=== PATIENT | female | born 1960 | race Caucasian/White ===

== ENCOUNTER 2023-09-05 11:26 | Outpatient (CLI) | payer MEDICARE, BC, SELFPAY ==
--- OUTSIDE RECORDS SUMMARY | 2023-09-05 11:29 | XMS_ITS | Clinical Summary ---
Author Name Unknown Organization [facility] Address [place], [place] [address] Care Team Providers Care Digital Associate Name Role Phone Andrzej Johnson MD Primary Care Provider [phone] Allergies Active Allergy Reactions Criticality Noted Date Comments Amoxicillin Rash 11/02/2013 Tree Nut Hives 02/26/2008 Medications Medication Sig Dispensed Refills Start Date End Date Status BiPapIndications:Obs tructive sleep apnea BIPAP machine for home use at pressure: 14/10 cm/H2O , nasal mask x1/3month with nasal cushion x2/mo 1 Each 0 02/26/2021 Active medication order composer Bone [place] with collagen 0 03/15/2022 Active dwmezqt-twni-svhuy-o reg-capryl 100 mg-150 mg- 50 mg-150 mg cap Take by mouth. 0 03/15/2022 Active loratadine (CLARITIN) 10 mg tablet Take 1 Tablet (10 mg) by mouth once daily. 0 03/15/2022 Active hydroCHLOROthiazide 12.5 mg capsuleIndications:H TN (hypertension) Take 1 Capsule (12.5 mg) by mouth every morning. 90 Capsule 3 05/02/2023 Active potassium chloride (Klor-Con M20) 20 mEq extended-release tablet (part/cryst)Indicati ons:HTN (hypertension) Take 1 Tablet (20 mEq) by mouth once daily with a meal. 270 Tablet 3 05/03/2023 Active Active Problems Problem Noted Date Diagnosed Date HTN (hypertension) 03/04/2014 JOSE MANUEL 02/02/2013 AHI-14, positional 02/08/2013 Screen for colon cancer 03/20/2010 Overview: Colon cancer screening. Her most recent one was 03/11/2020 and she will be due for her next one in 03/2030. Prediabetes 06/11/2009 Other abnormal blood chemistry 07/14/2007 Overview: Fasting sugar of 110 in 2001 Immunizations Name Administration Dates Next Due AMB Influenza, IIV3 (Age >=3 years)(Flu Clinic Only) 07/15/2008 COVID-19 vaccine (Moderna 100mcg/0.5mL) PF, MDV 10/07/2020,09/09/2020 Hepatitis A (Adult) 06/11/2009,02/26/20082008 Hepatitis B (Adult) 03/03/2020, 2,07/13/2001,05/04 Hepatitis B, Unspecified 07/13/2001,05/04/2001 Influenza A (H1N1), Inactivated 08/25/2009 Influenza A (H1N1), Inactiva patrizia (Age >=3 Years) 08/25/2009 Influenza, IIV3 (Age 6-35 mos) 09/28/2010 Influenza, IIV3 (Age >=3 years) 06/11/20 09,07/14/2007,06/25/2006,06/29,06/22/2003 Influenza, IIV4 04/17/2022, 8,06/03/2017,08/20,05/23/2015,05/30/2014 Influenza, IIV4 (=>6mos) MDV 05/31/2019 Influenza, Injectable, Mdck, Quadrivalent, W/preservative 05/28/2021 Influenza,CCIIV4 PRESERV FREE 05/19/2020 Td (Age >=7 Years) 07/06/1996 Tdap 09/26/2017,09/28/2010,02/22/2007 02/22/2017 Zoster (Shingrix-RZV, recombinant) 05/01/2019,,10/22/2018 Family History Medical History Relation Name Comments Cancer-prostate Brother 1 Cancer-prostate Brother 2 Cancer-prostate Brother 3 Cancer-prostate Brother 4 Cancer-prostate Brother 5 Cancer Father Lung cancer d at 63 Cancer-breast Maternal Aunt 2 Heart Disease Maternal Uncle Heart Disease Mother Pacemaker and Valve Replacement; doing well in her 90s Cancer-breast Other Niece- materna l Diabetes Paternal Grandmother Malignant Hypertension Sister 2 La[place] under control now Relation Name Status Comments Brother 1 Brother 2 Alive Brother 3 Alive Brother 4 Alive Brother 5 Alive Brother 6 Alive Father Maternal Aunt 1 (Age age 62) alejandra ast cancer Maternal Aunt 2 Maternal Grandfather (Age age 62 ) lung cancer Maternal Grandmother Alive Maternal Uncle Mother Other Paternal Grandmother Sister 1 Alive Sister 2 Lavern Alive Social History Tobacco Use Types Packs/Day Years Used Date Smoking Tobacco: Never Smokeless Tobacco: Never Tobacco Cessation:Counseling Given: Yes Alcohol Use Standard Drinks/Week Comments Yes 3 (1 standard drink = 0.6 oz pur e alcohol) occasional PHQ-2 Answer Date Recorded PHQ-2 TOTAL SCORE 0 03/16/2023 Social Connections Answer Date Recorded Frequency of Communication with Friends and Fami ly 0 03/14/2023 Alcohol Use Answer Date Recorded How often do you have a drink containing alcohol ? 3 03/15/2022 How many drinks containing a lcohol do you have on a typical day when you are drinking? 0 03/15/2022 How often do you have five or more drinks on one occasion? 0 03/15/2022 Financial Resource Strain Answer Date R ecorded Difficulty of Paying Living Expenses 3 03/14/2023 Difficulty of Paying Living Expenses Not on file 03/14/2023 Food Insecurity Answer Date Recorded Worried About Running Out of Food in the Last Ye ar 1 03/14/2023 Transportation Needs Answer Date Record ed Lack of Transportation (Medical) 1 03/14/2023 Housing Stability Answer Date Recorded Unable to Pay for Housing in the Last Year 1 03/14/2023 Sex and Gender Information Value Date Recorded Sex Assigned at Not on file Gender Identity Not on file Sexual Orientation Not on file Obstetrics History Para Term AB IAB SAB Ectopic Multiple Livin g Live Births 3 3 3 Date Outcome GA Total Labor Labor/2nd/3rd Weight Sex Delivery Anes PTL Pauly A1 A5 Name Cl in Term Term Term Last Filed Vital Signs Vital Sign Reading Time Taken Comments Blood Pressure 132/85 03/16/2023 9:37 AM CDT Pulse 65 03/16/2023 9:37 AM CDT Temperature 36.1 ??C (97 ??F) 03/15/2022 10: 02 AM CDT Respiratory Rate 18 02/26/2008 9:58 AM CDT Oxygen Saturation 99% 03/16/2023 9:37 AM CDT Inhaled Oxygen Concentration - - Weight 102.2 kg (225 lb 6.4 oz) 03/16/2023 9:37 AM CDT Height 156 cm (5' 1.42) 03/16/2023 9:37 AM CDT Body Mass Index 42.01 03/16/2023 9:37 AM CDT Plan of Treatment Upcoming Encounters Date Type Department Care Team (Late st Contact Info) Description 09/20/2023 11:45 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 [facility] [place] [place] [address] Jeffrey Roque PA [address] [address] Health Maintenance Due Date Last Done Comments HIV for age 15-65 1975 COVID-19 vaccine series (2022- season) 2023 04/17/2022, 01/19/2022, 06/12/2021, Additional history exists DEXA/DXA scan for age 65+ 2023 Influenza for age 65+ 2023 04/17/2022 , 05/28/2021, 05/19/2020, Additional history exists Pneumococcal series for age 65+ (1 of 1 - PCV) 2023 Mammogram for age 45-75 03/11/2024 03/11/20 23, 03/08/2022, 03/06/2021, Additional history exists Pap test for age 21-65 03/13/2024 , 03/13/2021, 08/20/2016, Additional history exists BMI (ht and wt on same day) for age 18+ 03/16/2024 03/16/2023, 03/15/2022, 03/13/2021, Additional history exists Depression screening for age 12+ 03/16/2024 03/16/2023, 03/15/2022, 03/13/2021, Additional history exists Tetanus booster 09/26/2027 09/26/2017, 09/09, 02/22/2007, Additional history exists Lipids for age 45-75 03/16/2028 03/16/2023, 03/15/2022, 03/13/2021, Additional history exists Colonoscopy through age 75 03/11/203003/11, 03/20/2010, 03/20/2010 Tdap Completed 09/26/2017, 09/09, 02/22/2007 Zoster (shingles) series for age 50+ Completed 05/01/2019, 11/05/2018, 10/22/2018 Hepatitis C screening for ag e 18-79 Completed 03/13/2021 Care Teams Digital Associate Relationship Specialty Start Date End Date Andrzej Johnson MD [address] [place] [address] PCP - General 06/20/09
== END 2023-09-05 11:27 | disposition home or self-care (01) ==
PROVIDERS: PCP Family Medicine; Visit Provider Family Medicine
DX: Z13.220 Encounter for screening for lipoid disorders (principal); R73.03 Prediabetes
CPT/HCPCS: 80053; 80061

== ENCOUNTER 2023-09-29 12:53 | Outpatient (CLI) | payer MEDICARE, BC, SELFPAY ==
--- NOTE | 2023-09-29 13:00 | XR_ITS ---
Patient: BRANDAN DENNIS Facility:?[facility] Patient ID:?[id number] Site Patient ID:?[id number]. Site :?[id number] Study:?DEXA-Bone Density -09/29/2023 1:29:27 PM Ordering Physician:REFUGIO Final Report: DXA BONE MINERAL DENSITY STUDY Reason for exam: Asymptomatic menopausal state. Current height (inches): 61.5 Weight (lbs.): 220.0 Menopause age: 53 Ethnicity: White 1. Have you had a previous hip or vertebral fracture? No. 2. Have you had any fractures during your adult life which did not result from significant trauma (e.g., auto accident)? No. 3. Did either of your parents have a hip fracture? No. 4. Do you smoke? No. 5. Have you ever taken Glucocorticoids? No. 6. Do you have rheumatoid arthritis? No. 7. Do you have secondary osteoporosis? No. 8. Do you drink 3 or more alcoholic drinks per day? No. 9. Are you being treated for osteoporosis? No. 10. Have you ever taken any of the following medications: Actonel, Evista, Fosamax, Miacalcin, Reclast, Boniva, Forteo, HRT (i.e., estrogen/hormone therapy), Protelos, Prolia, Vitamin D, Calcium, other ? please specify. ANSWER: Yes; vitamin D and calcium. 11. Do you have any of the following medical conditions: Anorexia or bulimia, asthma or emphysema, end stage renal disease, hyperparathyroidism, any seizure disorders, cancer, inflammatory bowel diseases, hysterectomy, other ? please specify. ANSWER: No. 12. What was your maximum height (inches)? 62. 13. Do you perform weightbearing exercise regularly? Yes. 14. Do you regularly consume dairy products? Yes. 15. Do you drink caffeinated beverages? Yes. 16. At what age did your period start? 11. 17. Are you premenopausal? No. 18. How many full-term pregnancies have you had? 3. 19. Have you ever missed your period for more than 6 months in a row (not including or menopause)? No. TECHNIQUE: Bone mineral density study was performed using the [employer]. FINDINGS: The results of the study expressed as bone mineral density (BMD) are as follows: Lumbar Spine L1 to L4: BMD: 1.200 g/cm2. T-score: 1.4. Z-score: 3.2. Neck Left: BMD: 0.803 g/cm2. T-score: -0.4. Z-score: 1.1. Right: BMD: 0.859 g/cm2. T-score: 0.1. Z-score: 1.6. Total Left: BMD: 0.914 g/cm2. T-score: -0.2. Z-score: 1.0. Right: BMD: 0.974 g/cm2. T-score: 0.3. Z-score: 1.5. IMPRESSION: Normal bone density. JACOBO SPAULDING M.D. Diagnostic Radiologist [email or web address] [email or web address]/[email or web address] D& Transcribed: 2:[address]/Dictated by: Jacobo Spaulding MD @ 09/30/2023 11:58:00 AM Signed by:?Jacobo Spaulding MD @09/30/2023 3:04:57 PM (Electronic Signature)
== END 2023-09-29 12:54 | disposition home or self-care (01) ==
LOC: RAD 12:55
PROVIDERS: PCP Family Medicine; Visit Provider Family Medicine
DX: Z78.0 Asymptomatic menopausal state (principal)
CPT/HCPCS: 77080

== ENCOUNTER 2024-08-09 07:57 | Outpatient (CLI) | payer MEDICARE, BC, SELFPAY ==
--- NOTE | 2024-08-09 08:15 | CRLHL7_ITS ---
For Patients: As a result of the Cures Act, medical imaging exams and procedure reports are released immediately into your electronic medical record. You may view this report before your referring provider. If you have questions, please contact your health care provider. BILATERAL SCREENING MAMMOGRAM WITH COMPUTER-AIDED DETECTION AND TOMOSYNTHESIS TECHNIQUE: CC and MLO views were obtained. These mammographic images have been obtained using full-field digital technique. These mammographic images were interpreted with the benefit of computer-aided detection. Breast tomosynthesis was used in this interpretation. COMPARISON FILM: 01/22/20, 10/09/18, 09/01/17. FINDINGS: There are scattered areas of fibroglandular density. IMPRESSION: There is no radiographic evidence for malignancy. ASSESSMENT: BI-RADS Category 2: Benign RECOMMENDATION: Routine screening mammogram in 1 year. A lay language report of this examination will be provided to the patient. SAURAV SPAULDING M.D. Diagnostic Radiologist [email or web address] KRISTI/[email or web address] Transcribed: 08/09/2024, 2:[address]/Dictated by: Saurav Spaulding MD @ 08/09/2024 8:37:00 AM (Electronically Signed)
== END 2024-08-09 07:58 | disposition home or self-care (01) ==
PROVIDERS: PCP Family Medicine; Visit Provider Family Medicine
DX: Z12.31 Encounter for screening mammogram for malignant neoplasm of breast (principal)
CPT/HCPCS: 77063; 77067

== ENCOUNTER 2024-09-03 08:01 | Outpatient (CLI) | payer MEDICARE, BC, SELFPAY | END 2024-09-03 08:02 | disposition home or self-care (01) | LOC: NFLDREF 09-10 01:07 | PROVIDERS: PCP Family Medicine; Referring Provider Family Medicine; Visit Provider Family Medicine | DX: R73.03 Prediabetes (principal); Z13.6 Encounter for screening for cardiovascular disorders | CPT/HCPCS: 80053; 80061 ==